=== PATIENT | female | born 1935 | race African-American/Black ===

== ENCOUNTER 2024-06-30 10:12 | Inpatient (IN) | payer OTHER ==
--- NOTE | 2024-06-30 11:19 | RAD REPORT ---
Procedure: Chest Single View HISTORY: Confusion COMPARISON: 2013 FINDINGS: The lungs appear clear of acute infiltrate. No significant pleural effusion noted. The heart is mildly to moderately enlarged. .Marked degenerative changes left shoulder. 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 IMPRESSION: No acute abnormality is displayed.
[2024-06-30 11:30] LABS: Absolute Lymphocytes (CBC) 0.8 K/uL (0.7-4.9); Absolute Monocytes 0.1 K/uL (0.1-1.3); Absolute Neutrophil 4.6 K/uL (1.8-8.0); Basophils % 0.2 % (0-1.3); Eosinophils % 0.6 % (0-4.4); Hematocrit 34.6 % (36.0-45.0); Lymphocytes % 14.7 % (15.3-44.8); MCH 28.9 pg (27.0-35.0); MCHC 31.9 g/dL (32.0-36.0); MCV 90.7 fL (80-100); MPV 9.4 fL (7.6-11.3); Monocytes % 2.2 % (3.3-12.3); Neutrophils % 82.3 % (41.7-73.7); Platelets 114 thou/uL (152-406); RBC Red Blood Cell Count 3.81 M/uL (3.86-4.86); Red Cell Distribution Width 14.8 % (12.1-15.2)
[2024-06-30 11:33] LABS: PT Prothrombin Time 13.9 SECONDS (9.4-12.5); PTT, Activated Partial Thromb 24.6 SECONDS (24.3-36.9); Protime INR 1.25
[2024-06-30 11:45] LABS: Anion Gap 15.2 mEq/L (5.0-15.0); Potassium 3.2 mEq/L (3.5-5.1)
[2024-06-30 11:53] LABS: Troponin High Sensitivity 347.5 pg/mL (<58.9)
--- NOTE | 2024-06-30 11:57 | RAD REPORT ---
EXAM: CT brain without contrast HISTORY: Confusion. COMPARISON: 2013 TECHNIQUE: Multiple contiguous axial images were obtained and a CT of the brain without contrast. Sagittal and coronal reformats were performed. Automated exposure control, adjustment of the mA and/or kV according to patient size, and/or itera tive reconstruction. Unless otherwise specified, incidental findings do not require dedicated imaging follow-u FINDINGS: An intracranial bleed is not seen Ventricles are normal caliber No extra-axial fluid collection noted Mild to moderate low-density paraventricular, deep and subcortical white matter probably ischemic lee nges secondary to small vessel disease. 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 IMPRESSION: No acute intracranial abnormality noted. If the patient's symptoms persist MRI of the brain would be recommended. from the emergency room was notified at 1150AM June 30, 2024
[2024-06-30 12:33] LABS: Specific Gravity 1.016 (1.005-1.030); Sqamous Epithelial <5 /HPF (None Seen); Urine Bacteria >50 /HPF (<20); Urine Bilirubin NEGATIVE (Negative); Urine Blood 2+ (Negative); Urine Clarity Extremely Turbid (Clear); Urine Color Light-Orange (Yellow); Urine Culture Reflex Order REFLEXED; Urine Glucose NEGATIVE (Negative); Urine Ketones TRACE (Negative); Urine Microscopic Reflex YN ORDER UMIC; Urine Mucus 2+ /HPF (None Seen); Urine Nitrite NEGATIVE (Negative); Urine Protein 1+ (Negative); Urine RBC <5 /HPF (None Seen); Urine Urobilinogen 1+ (Normal); Urine WBC 20-50 /HPF (<5); Urine pH 5.5 (5.0-7.0)
--- NOTE | 2024-06-30 13:14 | EDPHYS ---
Physician Documentation [facility] Name: Renetta Slaughter Age: 89 yrs Sex: Female : 1935 Arrival Date: 06/30/2024 Time: 10:12 Bed 2 Private MD: ED Physician Reji Duran HPI: 06/30 20:36 This 89 yrs old Black Female presents to ER via EMS with complaints of Altered Mental bo1 Status. 20:36 The patient presents with confusion, Change noted by family member progressively since bo1 Wed of this past week. Onset: The symptoms/episode began/occurred gradually, 3 day(s) ago, and became worse. Associated signs and symptoms: Pertinent positives: confusion. Current symptoms: In the emergency department the patient's symptoms are unchanged from the initial presentation. Patient's baseline: Normal mentation. Pt is outside the window for thrombolytics. Other causes of AMS need to be considered. Historical: - Allergies: 10:18 No Known Allergies; bp - PMHx: 12:11 Hypertensive disorder; jl7 - PSHx: 12:11 Cholecystectomy; Total abdominal hysterectomy; jl7 - Immunization history:: Adult Immunizations unknown. - Infectious Disease History:: Denies. - Social history:: Smoking status: unknown. ROS: 20:41 Constitutional: Negative for fever, chills, and weight loss per family bo1 20:41 All other systems are negative, 20:41 Unable to obtain ROS due to altered mental status, patient's speech is incomprehensible, patient's inability to understand questions, Exam: 20:43 Constitutional: This is a well developed, well nourished patient who is awake and in bo1 no acute distress. 20:43 Constitutional: The patient appears alert, awake, Elderly non toxic but not verbal 20:43 Head/face: Exam is negative for acute changes, 20:43 Eyes: Preference to the left side. 20:43 Neck: External neck: is normal, 20:43 Cardiovascular: Rate: normal, Rhythm: regular, Pulses: no pulse deficits are appreciated, 20:43 No acute EKG changes 20:43 Respiratory: the patient does not display signs of respiratory distress, Respirations: normal, Breath sounds: are clear throughout, Shallow breathing but not labored, 20:43 Musculoskeletal/extremity: Extremities: all appear grossly normal, with no appreciated pain with palpation, 20:43 Skin: Turgor: is good, Warm and dry, 20:43 Neuro: seizure activity, is not displayed by the patient, AMS unable to test NIH due to AMS, Vital Signs: 10:15 BP 113 / 76; Pulse 75; Resp 18; Temp 97.5; Pulse Ox 94% ; bp 10:51 Pulse Ox 97% on 2 lpm NC; jl7 12:40 BP 120 / 76; Pulse 83; Resp 17; Pulse Ox 97% ; jl7 14:45 BP 132 / 78; Pulse 85; Resp 15; Pulse Ox 97% on 2 lpm NC; jl7 MDM: 10:39 Medical Screening Exam initiated bo1 20:41 Differential Diagnosis: Infection - source suspected is urinary. Possible CVA with bo1 delayed presentation. Data reviewed: vital signs, old medical records, lab test result(s), EKG, radiologic studies, CT scan, plain films. 20:42 ED course: Discussed the need to inhouse admission to family due to elevated cardiac bo1 enzymes and AMS condition. 20:48 Consideration of Admission/Observation Patient was admitted/placed on observation. bo1 Management of patient was discussed with the following: Hospitalist: Dr Parisa LARSON/Too. 06/30 11:02 Order name: Basic Metabolic Panel; Complete Time: 12:16 bo1 06/30 11:02 Order name: CBC with Diff; Complete Time: 12:16 bo1 06/30 11:02 Order name: High Sensitivity Troponin; Complete Time: 12:16 bo1 06/30 11:02 Order name: Protime (+inr); Complete Time: 12:16 bo1 06/30 11:02 Order name: Ptt, Activated; Complete Time: 12:16 bo1 06/30 11:02 Order name: Urinalysis w/ reflexes; Complete Time: 13:07 bo1 06/30 12:40 Order name: Urine Culture EDMS 06/30 13:16 Order name: Troponin High Sensitivity EDMS 06/30 13:18 Order name: Liver (Hepatic) Function EDMS 06/30 13:27 Order name: Troponin High Sensitivity bo1 06/30 14:31 Order name: CBC with Automated Diff EDMS 06/30 14:31 Order name: CBC with Automated Diff EDMS 06/30 14:31 Order name: Comprehensive Metabolic Panel EDMS 06/30 14:31 Order name: Comprehensive Metabolic Panel EDWY 06/30 14:31 Order name: Troponin High Sensitivity ED[facility] 06/30 14:31 Order name: Troponin High Sensitivity [facility] 06/30 14:31 Order name: Troponin High Sensitivity EDW[facility] 06/30 11:02 Order name: CT Stroke Brain w/o Contrast; Complete Time: 12:16 bo1 06/30 11:02 Order name: Stroke CXR 1 View; Complete Time: 12:16 bo1 06/30 15:04 Order name: Brain Wo Cont EDW[facility] 06/30 14:31 Order name: CONS Physician Consult ED[facility] 06/30 11:02 Order name: Accucheck; Complete Time: 11:05 bo1 06/30 11:02 Order name: Cardiac monitoring; Complete Time: 11:05 bo1 06/30 11:02 Order name: EKG - Nurse/Tech; Complete Time: 11:05 bo1 06/30 11:02 Order name: IV Saline Lock; Complete Time: 11:05 bo1 06/30 11:02 Order name: Labs collected and sent; Complete Time: 11:25 bo1 06/30 11:02 Order name: NPO; Complete Time: 11:05 bo1 06/30 11:02 Order name: O2 Per Protocol; Complete Time: 11:05 bo1 06/30 11:02 Order name: O2 Sat Monitoring; Complete Time: 11:05 bo1 06/30 11:02 Order name: Stroke Swallow Screen; Complete Time: 11:05 bo1 06/30 14:52 Order name: Alfonso; Complete Time: 15:08 jl7 Administered Medications: 15:11 Drug: Rocephin IV 1 grams IV at calculated rate once; Given slow IV push per pharmacy jl7 instructions Route: IV; Rate: calculated rate; Site: right antecubital; 15:29 Follow up: Response: No adverse reaction; IV Status: Completed infusion jl7 Disposition Summary: 06/30/24 13:13 Hospitalization Ordered Notes: Hospitalization Status: Observation bo1 Provider: Blanca Mccauley Location: Telemetry/MedSurg (observation) bo1 Condition: Fair bo1 Problem: new bo1 Symptoms: are unchanged bo1 Bed/Room Type: Standard bo1 Room Assignment: 403(06/30/24 14:38) eb Diagnosis - UTI/ Urinary tract infection, site not specified bo1 - Altered mental status, unspecified bo1 Forms: - Medication Reconciliation Form bo1 - SBAR form bo1 - Leadership Thank You Letter bo1 Signatures: Dispatcher [employer] EDPatti Maya, RN RN jl7 David Mckeon RN RN Jacqueline Meredith Benjamin, MD MD bo1 Corrections: (The following items were deleted from the chart) 11: 11:03 BASIC METABOLIC PANEL+C.LAB.BRZ ordered. EDMS EDMS 11: 11:03 CBC+H.LAB.BRZ ordered. EDMS EDMS 11: 11:03 Troponin High Sensitivity+C.LAB.BRZ ordered. EDMS EDMS 11: 11:03 PROTIME (+INR)+COAG.LAB.BRZ ordered. EDMS EDMS 11: 11:03 PTT, ACTIVATED+COAG.LAB.BRZ ordered. EDMS EDMS 11:03 11:03 CT-STROKE BRAIN W/O CONTRAST+CT.RAD.BRZ ordered. EDMS EDMS 11: 11:03 Chest Single View+RAD.RAD.BRZ ordered. EDMS EDMS 11:03 11:03 Urinalysis+U.LAB.BRZ ordered. EDMS EDMS 14:38 13:13 bo1 eb
--- NOTE | 2024-06-30 13:14 | ER ---
Nurse's Notes [facility] Name: Renetta Slaughter Age: 89 yrs Sex: Female : 1935 Arrival Date: 06/30/2024 Time: 10:12 Bed 2 Private MD: Diagnosis: UTI/ Urinary tract infection, site not specified;Altered mental status, unspecified Presentation: 12 10:15 Chief complaint: EMS states: FAMILY CALLED 911 FOR AMS, LAST KNOWN NORMAL >24 HR. NO bp FOCAL NEURO DEFICITS NOTED. Coronavirus screen: At this time, the client does not indicate any symptoms associated with coronavirus-19. Ebola Screen: No symptoms or risks identified at this time. Initial Sepsis Screen: Does the patient meet any 2 criteria? Altered Mental Status. No. Patient's initial sepsis screen is negative. Does the patient have a suspected source of infection? No. Patient's initial sepsis screen is negative. Risk Assessment: Do you want to hurt yourself or someone else? Patient reports no desire to harm self or others. Onset of symptoms is unknown. Care prior to arrival: IV initiated. 20 GA, in the left forearm. 10:15 Method Of Arrival: EMS: [facility] bp 10:15 Acuity: NIC 3 bp Triage Assessment: 10:18 General: Appears unkempt, Behavior is agitated, uncooperative. Pain: Unable to use pain bp scale. Does not appear to understand pain scale. EENT: No deficits noted. Neuro: Level of Consciousness is awake, confused, Oriented to none. Cardiovascular: Rhythm is sinus rhythm. Respiratory: No deficits noted. GI: No signs and/or symptoms were reported involving the gastrointestinal system. : No signs and/or symptoms were reported regarding the genitourinary system. Derm: No deficits noted. Musculoskeletal: No deficits noted. Historical: - Allergies: 10:18 No Known Allergies; bp - PMHx: 12:11 Hypertensive disorder; jl7 - PSHx: 12:11 Cholecystectomy; Total abdominal hysterectomy; jl7 - Immunization history:: Adult Immunizations unknown. - Infectious Disease History:: Denies. - Social history:: Smoking status: unknown. Screenin:19 [facility] ED Fall Risk Assessment (Adult) History of falling in the last 3 months, bp including since admission No falls in past 3 months (0 pts) Confusion or Disorientation Yes (5 pts) Intoxicated or Sedated No (0 pts) Impaired Gait Yes (1 pt) Mobility Assist Device Used No (0 pt) Altered Elimination No (0 pt) Score/Fall Risk Level 3 or more points = High Risk Oriented to surroundings, Maintained a safe environment. Abuse screen: Denies threats or abuse. Denies injuries from another. Nutritional screening: No deficits noted. Tuberculosis screening: No symptoms or risk factors identified. Assessment: 10:19 General: SEE TRIAGE NOTE. Derm: Decubitus located on sacrum approximately 2.6 cm to 7.5 bp cm is stage II. Vital Signs: 10:15 BP 113 / 76; Pulse 75; Resp 18; Temp 97.5; Pulse Ox 94% ; bp 10:51 Pulse Ox 97% on 2 lpm NC; jl7 12:40 BP 120 / 76; Pulse 83; Resp 17; Pulse Ox 97% ; jl7 14:45 BP 132 / 78; Pulse 85; Resp 15; Pulse Ox 97% on 2 lpm NC; jl7 ED Course: 10:15 Patient arrived in ED. bp 10:18 Triage completed. bp 10:18 Arm band placed on. bp 10:19 Patient has correct armband on for positive identification. bp 10:19 Maintain EMS IV. Dressing intact. Good blood return noted. Site clean \T\ dry. Gauge \T\ bp site: 20 LFA. Flushed with 10 mL NS. 10:20 David Mckeon, RN is Primary Nurse. bp 10:20 laboratory monitor on. Pulse ox on. NIBP on. jl7 10:20 Warm blanket given. jl7 10:39 Reji Duran MD is Attending Physician. bo1 10:51 EKG done, by ED staff, reviewed by Reji Duran MD. jl7 11:12 Stroke CXR 1 View In Process Unspecified. EDMS 11:45 CT Stroke Brain w/o Contrast In Process Unspecified. EDMS 12:10 Urine collected: straight cath specimen, cloudy, tea colored, sediment noted, Amount jl7 Returned: 200mL. Straight cath inserted, using sterile technique, 14 Fr. Specimen obtained. Returned cloudy urine. Patient tolerated well. 13:11 Ritchie Sparks is Hospitalizing Provider. bo1 13:13 Hospitalizing Provider role handed off by Ritchie Sparks bo1 13:13 Blanca Mccauley MD is Hospitalizing Provider. bo1 13:35 Repeat lab(s) drawn. by me, sent to lab. jl7 15:08 Alfonso cath inserted, using sterile technique, 16 Fr., by me, balloon inflated, to ll1 gravity drainage, Patient tolerated well. 15:13 Provided Education on: admit education to family. jl7 15:13 No provider procedures requiring assistance completed. Patient admitted, IV remains in jl7 place. intact, No redness/swelling at site. Administered Medications: 15:11 Drug: Rocephin IV 1 grams IV at calculated rate once; Given slow IV push per pharmacy jl7 instructions Route: IV; Rate: calculated rate; Site: right antecubital; 15:29 Follow up: Response: No adverse reaction; IV Status: Completed infusion jl7 Medication: 10:19 VIS not applicable for this client. bp Outcome: 13:13 Decision to Hospitalize by Provider. bo1 15:13 Admitted to Tele accompanied by tech, family with patient, via stretcher, room 403, jl7 with chart, 15:13 Condition: stable 15:13 Discharge instructions given to family, Instructed on the need for admit, Demonstrated understanding of instructions, 15:28 Patient left the ED. jl7 Signatures: Dispatcher [employer] EDMS Patti Diaz RN RN jl7 David Mckeon RN RN bp Lewis, Lynsay, BENSON RN ll1 Reji Duran MD MD bo1
[2024-06-30 14:06] LABS: Troponin High Sensitivity 350.2 pg/mL (<58.9)
--- NOTE | 2024-06-30 14:22 | P.HP ---
Certification for Inpatient Patient admitted to: Inpatient With expected LOS: >2 Midnights Patient will require the following post-hospital care: Home Health Services Practitioner: I am a practitioner with admitting privileges, knowledge of patient current condition, hospital course, and medical plan of care. Services: Services provided to patient in accordance with Admission requirements found in Title 42 Section 412.3 of the Code of Federal Regulations Patient History Date of Service: 06/30/24 Reason for admission: Altered mental status History of Present Illness: Patient is an 89-year-old female who came to the hospital with altered mentation. Patient apparently has been doing well where she is fairly active at home. She eats and drinks fairly well. She also gets around by herself but does sometimes use a walker. Her family states that she normally has really appropriate conversations but she does get confused at times. This morning she was not acting like herself and she was very altered. The family was concerned about her mentation. They decided to bring her into the emergency room for further evaluation. In the ER, her she was evaluated and she had labs which showed acute renal sufficiency with a urinary tract infection and elevated troponins. There was no significant change in her repeat troponins, and the EKG were unremarkable. Patient is not having any obvious chest pain although she is confused and not really interacting that her well. CT scan of the brain was unremarkable. Patient will be admitted to the hospital for a urinary tract infection with acute renal insufficiency. Will continue with IV antibiotics and aggressive IV hydration. Patient will also get cardiology consultation for elevated troponin and will get an echocardiogram. Reassess patient later this evening. - Past Medical/Surgical History -: Hypertension -: GERD -: Osteoarthritis -: Cholecystectomy -: Hysterectomy - Family History Father Family History: Reviewed- Non-Contributory - Social History Smoking Status: Former smoker Alcohol use: No CD- Drugs: No Review of Systems is unable to be obtained Physical Examination - Vital Signs Temperature: 98 F Blood Pressure: 140/90 Pulse: 110 Respirations: 18 Pulse Ox (%): 95 - Physical Exam General: Other (lethargic) HEENT: Atraumatic, PERRLA, Mucous membr. moist/pink, EOMI, Sclerae nonicteric Neck: Supple, 2+ carotid pulse no bruit, No LAD, Without JVD or thyroid abnormality Respiratory: Clear to auscultation bilaterally, Normal air movement Cardiovascular: Regular rate/rhythm, Normal S1 S2, Systolic murmur Gastrointestinal: Normal bowel sounds, Soft and benign, Non-distended, No tenderness Musculoskeletal: No clubbing, No swelling, No tenderness Integumentary: No rashes Neurological: Sensation intact, Cranial nerves 3-12 intact, Abnormal gait, Abnormal speech, Abnormal strength Lymphatics: No axilla or inguinal lymphadenopathy - Studies Laboratory Data (last 24 hrs) 06/30/24 06/30/24 06/30/24 11:18 11:18 11:18 WBC 5.60 Hgb 11.0 L Hct 34.6 L Plt Count 114 L PT 13.9 H INR 1.25 APTT 24.6 Sodium 137 Potassium 3.2 L BUN 60 H Creatinine 3.71 H Glucose 118 H Assessment & Plan - Problems (Diagnosis) (1) Altered mental status Current Visit: Yes Status: Acute (2) UTI (urinary tract infection) Current Visit: Yes Status: Acute (3) Toxic encephalopathy Current Visit: Yes Status: Acute (4) DENNIS (acute kidney injury) Current Visit: Yes Status: Acute (5) Metabolic encephalopathy Current Visit: Yes Status: Acute (6) History of hypertension Current Visit: Yes Status: Acute (7) History of osteoarthritis Current Visit: Yes Status: Acute (8) History of gastroesophageal reflux (GERD) Current Visit: Yes Status: Acute - Plan Plan: 1. UTI with toxic encephalopathy; continue with IV fluids and IV antibiotic therapy. Alfonso catheter in place at this time 2. DENNIS with metabolic encephalopathy; continue with gentle hydration. Baseline GFR was greater than 60. Continue monitoring renal function closely. Will hold off on nephrology consult unless patient renal function does not improve. 3. Elevated troponin; most likely related type II myocardial infarction. No EKG changes and repeat troponin was not significantly elevated. Will continue with antiplatelet therapy and statin therapy; strict BP 4. Possible CVA; CT of the head was negative. Will get an MRI of the brain in AM. 5. History of hypertension; continue with antihypertensives 6. History of osteoarthritis; physical therapy evaluation. According to the family patient gets out of bed and ambulates on her own. Sometimes she does use a walker. 7. GERD; continue with PPI 8. DVT prophylaxis Discharge Plan: Home Plan to discharge in: Greater than 2 days - Advance Directives Does patient have a Living Will: No Does patient have a Durable POA for Healthcare: No - Code Status/Comfort Care Code Status Assessed: Yes Code Status: Full Code Critical Care: No Time Spent Managing PTS Care (In Minutes): 45
[2024-06-30] MEDS ORDERED: ACETAMINOPHEN 500 MG TAB PO PRN (14:25)
[2024-06-30] MEDS: ASPIRIN EC 81 MG TAB PO ONE (14:25)
[2024-06-30] MEDS: CEFTRIAXONE 1,000 MG in NA CHLORIDE 0.9% 50 ML IVPB STA (14:25)
[2024-06-30] MEDS ORDERED: ONDANSETRON 4 MG/2 ML VIAL IV PRN (14:25)
[2024-06-30] MEDS ORDERED: CEFTRIAXONE 1000 MG/VIAL ONE (14:55)
[2024-06-30] MEDS ORDERED: METOPROLOL TARTRATE 5 MG/5 ML INJ IV PRN (15:02)
[2024-06-30] MEDS: NA CHLORIDE 0.9% 1,000 ML IV SCH (16:52)
[2024-06-30 17:03] VITALS: BMI 29.8
[2024-06-30] MEDS: METOPROLOL TAR 25 MG TAB PO SCH (18:00)
[2024-06-30] MEDS: LOSARTAN POTASSIUM 50 MG TABLET PO SCH (21:34)
[2024-06-30] MEDS: ATORVASTATIN 20 MG TAB PO SCH (21:34)
[2024-06-30 22:04] LABS: Albumin 3.2 g/dL (3.4-5.0); Albumin/Globulin Ratio 0.8 (1.1-1.8); Bilirubin Direct 0.4 mg/dL (0-0.2); Bilirubin Indirect, Calculated 0.5 mg/dL (0.2-0.8); Bilirubin Total 0.9 mg/dL (0.2-1.0); Globulin 4.1 g/dL (2.3-3.5); Protein, Total 7.3 g/dL (6.4-8.2)
--- NOTE | 2024-07-01 01:37 | P.PN ---
Date of Service: 07/01/24 Reported transient 3 seconds run of A-fib with RVR but returned back to sinus, unclear if actual A-fib, but will obtain magnesium and TSH for now
[2024-07-01 04:01] LABS: Thyroid Stimulating Hormone 0.621 uIU/mL (0.358-3.740)
[2024-07-01 04:02] LABS: Magnesium 1.6 mg/dL (1.6-2.4)
[2024-07-01 06:20] LABS: Absolute Monocytes 0.2 K/uL (0.1-1.3); Absolute Neutrophil 2.2 K/uL (1.8-8.0); Basophils % 0.1 % (0-1.3); Eosinophils % 0.1 % (0-4.4); Hematocrit 31.6 % (36.0-45.0); Hemoglobin 10.3 g/dL (12.0-15.0); Lymphocytes % 28.9 % (15.3-44.8); MCHC 32.5 g/dL (32.0-36.0); MCV 89.3 fL (80-100); MPV 9.8 fL (7.6-11.3); Monocytes % 4.9 % (3.3-12.3); Platelets 103 thou/uL (152-406); RBC Red Blood Cell Count 3.54 M/uL (3.86-4.86)
[2024-07-01] MEDS: NA CHLORIDE 0.9% 500 ML IV ONE (06:33)
[2024-07-01 06:37] LABS: Albumin 2.6 g/dL (3.4-5.0); Albumin/Globulin Ratio 0.7 (1.1-1.8); Bilirubin Total 0.8 mg/dL (0.2-1.0); Globulin 3.9 g/dL (2.3-3.5); Protein, Total 6.5 g/dL (6.4-8.2)
[2024-07-01 07:09] LABS: Troponin High Sensitivity 287.4 pg/mL (<58.9)
[2024-07-01] MEDS ORDERED: LOSARTAN POTASSIUM 50 MG TABLET PO SCH (09:00)
[2024-07-01] MEDS: ASPIRIN EC 81 MG TAB PO SCH (09:00)
[2024-07-01 09:25] LABS: Blood Morphology Comment NOT SEEN (NOT SEEN); Differential Total Cells Count 100; Lymphocytes 29 % (15-42); Monocytes 5 % (0-10); Platelet Estimate DECR; Segmented Neutrophils 66 % (40-80)
[2024-07-01 09:26] LABS: Dohle Bodies PRESENT
[2024-07-01] MEDS: Magnesium Sulfate 2gm IVPB 2 G/50 ML BAG IV ONE ×2 (10:23→11:00)
[2024-07-01] MEDS: CEFTRIAXONE 1,000 MG in NA CHLORIDE 0.9% 50 ML IVPB SCH (10:28)
--- NOTE | 2024-07-01 11:36 | P.CNS ---
Date of Consult: 07/01/24 Chief Complaint: Altered mental status History of Present Illness: Patient presented with AMS, trying to talk to her did not get any input, cardiology was consulted for NSTEMI. Allergies No Known Allergies Allergy (Unverified 06/30/24 15:02) Home medications list reviewed: Yes - Past Medical/Surgical History -: Hypertension -: GERD -: Osteoarthritis -: Cholecystectomy -: Hysterectomy - Family History Father Family History: Reviewed- Non-Contributory - Social History Smoking Status: Unknown if ever smoked Alcohol use: No CD- Drugs: No Review of Systems is unable to be obtained Physical Examination Temp Pulse Resp BP Pulse Ox 98.2 F 82 16 157/71 H 99 07/01/24 08:00 07/01/24 08:00 07/01/24 08:00 07/01/24 08:00 07/01/24 08:00 General: Cachectic, Delirious, Unresponsive Respiratory: Clear to auscultation bilaterally Cardiovascular: No edema, Normal S1 S2 Gastrointestinal: Normal bowel sounds Laboratory Data (last 24 hrs) 06/30/24 06/30/24 06/30/24 13:32 11:18 11:18 PT 13.9 H INR 1.25 APTT 24.6 Sodium 137 Potassium 3.2 L BUN 60 H Creatinine 3.71 H Glucose 118 H Total Bilirubin 0.9 AST 71 H ALT 29 Alkaline Phosphatase 49 - Problems (1) Elevated troponin Current Visit: Yes Status: Acute Plan: Troponin are mildly elevated with no significant EKG changes, patient is very weak, cachectic and unable to communicate, patient is not a candidate for any advanced cardiology intervention. continue medical treatment. continue ASA 81 mg daily get Echo (2) HTN (hypertension) Current Visit: Yes Status: Acute Plan: continue current medications
--- NOTE | 2024-07-01 12:36 | P.PN ---
Subjective Date of Service: 07/01/24 Chief Complaint: Altered mental status Subjective: No new changes No overnight events noted except for patient having poor oral intake, urine output 700 mL/h, no urinary tension by bedside ultrasound. Patient is nonverbal, on communicable, does not follow any command Review of Systems is unable to be obtained Physical Examination - Vital Signs Temperature: 98.6 F Blood Pressure: 133/71 Pulse: 79 Respirations: 16 Pulse Ox (%): 100 - Physical Exam Other Physical/Emotional Findings: - Physical Exam. General: Chronic ill- looking, cachectic, no apparent distress. HEENT: Normocephalic, atraumatic, nonicteric sclera, nonanemic conjunctive. Neck: Supple, without JVD or goiter or thyroid mass. Respiratory: Normal breathing effort, clear to auscultation bilaterally, no crackles no wheezing or rhonchi. Cardiovascular: Regular rate and rhythm, S1, S2 normal, no murmur no gallop. Gastrointestinal: Normal bowel sounds, nondistended, nontender, No ascites, , No masses, no hepatosplenomegaly. Extremities l: No clubbing, No peripheral edema, full range of motion, no deformity, no muscle atrophy. Integumentary: No rashes, petechia, suspected lesions. Lymphatics: No axilla or cervical lymphadenopathy. Neurology; drowsy, arousable by painful stimuli, no focal neurologic deficit, - Studies Laboratory Data (last 24 hrs) 06/30/24 13:32 Total Bilirubin 0.9 AST 71 H ALT 29 Alkaline Phosphatase 49 Assessment And Plan - Plan Patient is an 89-year-old female who came to the hospital with altered mentat ion. Patient apparently has been doing well where she is fairly active at home. She eats and drinks fairly well. She also gets around by herself but does sometimes use a walker. Her family states that she normally has really appropriate conversations but she does get confused at times. This morning she was not acting like herself and she was very altered. The family was concerned about her mentation. They decided to bring her into the emergency room for further evaluation. In the ER, her she was evaluated and she had labs which showed acute renal sufficiency with a urinary tract infection and elevated troponins. There was no significant change in her repeat troponins, and the EKG were unremarkable. Patient is not having any obvious chest pain although she is confused and not really interacting that her well. CT scan of the brain was unremarkable. #1 metabolic encephalopathy related to #2 and #[address] advanced dementia CT of the brain on admission shows no acute abnormality #2 possible acute cystitis without sepsis Urine culture growing gram-negative sanjuana, identification and sensitivity still pending, will continue ceftriaxone, no leukocytosis afebrile #3 nonoliguric DENNIS/CKD with overt proteinuria BUN/creatinine 73/3.82, no baseline creatinine to compare, urine output 700 mL over 12 hours, will continue IV hydration with normal saline at 100 mL/h, bicarb 27, potassium 3.0 replaced #4 paroxysmal atrial fibrillation with rapid ventricular response Heart rate down to 80, I will increased metoprolol 25 mg to 50 mg twice daily DVT prophylaxis enoxaparin subcu
[2024-07-01] MEDS: METOPROLOL TAR 50 MG TAB PO SCH (18:00)
--- NOTE | 2024-07-01 20:12 | RAD REPORT ---
EXAMINATION: US RETROPERITONEUM CLINICAL INDICATION: [facility] MAIN DENNIS TECHNIQUE: Real-time ultrasonography of the abdomen was performed. COMPARISON: CT abdomen and pelvis 05/17/2019 FINDINGS: RIGHT KIDNEY: Right renal length measurement: 7.8 cm. Normal in echogenicity and size. No calculus, s olid mass or hydronephrosis. LEFT KIDNEY: Extensive bowel shadowing limits evaluation. Left renal length measurement: 5.0 cm. Jermaine ed cortical thinning and increased echogenicity. No calculus, solid mass or hydronephrosis. URINARY BLADDER: Decompressed with Alfonso catheter in place. ADDITIONAL FINDINGS: Extensive fluid with debris in the left upper quadrant which may relate to stoma ch content, less likely a fluid collection. IMPRESSION: Atrophic changes of the left kidney, evaluation is limited due to extensive bowel shadowing in the le ft flank. Large volume of fluid present in the left upper quadrant, may relate to stomach content, less likely a fluid collection. If there is concern for sepsis or an infectious/inflammatory process in the abdomen, additional evaluation by CT may be helpful.
--- NOTE | 2024-07-01 20:19 | RAD REPORT ---
EXAMINATION: MRI BRAIN WITHOUT CONTRAST CLINICAL INDICATION: Female, 89 years old.[facility] MAIN N CVA; AMS TECHNIQUE: Multiplanar multisequence MR images of the brain were obtained without intravenous contras t. Unless otherwise specified, incidental findings do not require dedicated imaging follow-up. COMPARISON: 06/30/[address] FINDINGS: INTRACRANIAL: Motion artifact limits evaluation despite attempts at repeat imaging. Disproportionate prominence of the ventricles relative to the sulci. Midline structures are unremarkable. Diffusion restriction involving the right occipital lobe, with corresponding FLAIR signal abnormality and other foci of diffusion restriction along the basal and posterior right temporal lobe. There is moderate brain atrophy with advanced T2/FLAIR hyperintensities in the periventricular and deep whi te matter regions, likely representing chronic microvascular ischemic changes. There is no mass effect or midline shift. No abnormal extraaxial fluid collection. No susceptibility signal abnormalities. VASCULATURE: Normal signal voids in the larger intracranial arteries and dural venous sinuses. SINUSES: The paranasal sinuses and mastoid air cells are predominantly clear. BONE: The marrow signal pattern is within normal limits. IMPRESSION: Within limits of motion artifact, there is a region of diffusion restriction involving the right occi pital lobe, and adjacent basal and posterior right temporal lobe, concerning for acute to subacute infarct. Disproportionate prominence of the ventricular system relative to the sulci, findings which may relat e to central predominant volume loss versus sequelae of normal pressure hydrocephalus. Please correlate clinically.
--- NOTE | 2024-07-01 22:45 | RAD REPORT ---
EXAM: XR Abdomen 1 View (KUB) HISTORY: [facility] MAIN [place] , COMPARISON: None FINDINGS: Single view of the abdomen shows a nonspecific, nonobstructive bowel gas pattern. Gaseous d istention of the stomach. No suspicious calcifications are seen. The bones are unremarkable. IMPRESSION: Nasogastric distention stomach. No other suspicious findings
--- NOTE | 2024-07-02 01:44 | CON ---
Date of Consultation: 07/01/2024 Chief Complaint: Acute kidney injury. History Of Present Illness: Patient was brought to the hospital because of altered mental status. She is 89-year-old woman with recent worsening of mental status, altered mental status, altered mentation. The patient apparently has been doing well and she was fairly active at home. Her appetite was diminished. She also developed some mental status changes and her family decided to bring her into the emergency room for further evaluation. In the emergency room, she was evaluated and had lab work done, which showed severe acute kidney insufficiency. Urinalysis was significant for urinary tract infection and she was found to have also elevated troponin. There are no EKG changes. She was consulted by vba developer. CT scan of the brain was unremarkable. The patient was admitted to the hospital for urinary tract infection. She was started on IV antibiotics and aggressive IV hydration for volume depletion and acute kidney injury. Echocardiogram is pending. Renal ultrasound was ordered and showed loculated fluid in left upper quadrant. Small kidneys with significant changes in renal cortex, thinning of the renal cortex consistent with chronic kidney disease. Past Medical History: Hypertension, GERD, osteoarthritis, cholecystectomy, hysterectomy. Family History: Noncontributory. Social History: Former smoker. Denies alcohol. Denies drugs. Review of Systems: Unobtainable. Patient is lethargic and cannot provide review of systems. Physical Examination: Vital Signs: Blood pressure 140/90, heart rate 110, respiratory rate 18, SpO2 95%, temperature 98 Farenheit. General: Patient is lethargic. HEENT: Atraumatic, normocephalic. Anicteric sclerae. Neck: Supple. No bruits. Lungs: Equal chest expansion. Cardiovascular: S1, S2. Gastrointestinal: Soft, benign. Extremities: No clubbing. No swelling. No tenderness. Neurologic: The patient is lethargic. Neuro exam cannot be obtained. She does not cooperate with neuro exam. Laboratory Data: Blood work: WBC 5.6, hemoglobin 11, hematocrit 34.6, platelet count 114. Sodium 137, potassium 3.2, BUN 60, creatinine 3.71, glucose 118. Impression And Plan: 1. Altered mental status, encephalopathy, likely patient has underlying dementia. Urinary tract infection, on antibiotics. Acute kidney injury due to ATN and prerenal azotemia. There is underlying severe chronic kidney disease. Renal ultrasound showed thinning of the cortex and small kidneys. Plan is to continue IV fluids for hydration and to treat acute kidney injury with IV hydration. Electrolytes are stable. Monitor potassium level. The patient may need some potassium supplementation. Plan is to check magnesium and phosphorus level. The patient is undergoing workup for altered mental status and possible CVA. CT of the head was negative. 2. Hypertension. Continue antihypertensive medication and avoid SANDER inhibitor, avoid ARB. 3. History of osteoarthritis. Avoid nonsteroidal anti-inflammatory medication. 4. Ultrasound shows loculated fluid. Plan is to check CT scan per stone protocol. CRISTOPHER/GOMEZ Voice ID: [id number] Report ID: [id number] VARGHESE
[2024-07-02 06:22] LABS: Anion Gap 13.1 mEq/L (5.0-15.0); Phosphorus 4.2 mg/dL (2.5-4.9); Potassium 3.1 mEq/L (3.5-5.1)
[2024-07-02 06:23] LABS: Troponin High Sensitivity 232.6 pg/mL (<58.9)
--- NOTE | 2024-07-02 07:58 | RAD REPORT ---
EXAMINATION: CT ABDOMEN AND PELVIS WITHOUT CONTRAST CLINICAL INDICATION: [place] TECHNIQUE: CT abdomen and pelvis was performed, without IV contrast, as per department protocol. Axia l, sagittal and coronal reconstructions were obtained. One or more of the following dose reduction techniques were used: Automated exposure control, adjustment of the mA and kV according to the patien t size, and iterative reconstruction. Unless otherwise specified, incidental findings do not require dedicated imaging follow-up. COMPARISON: 05/17/2019 FINDINGS: The lack of intravenous contrast limits the sensitivity of this exam for evaluation of solid visceral organs, vascular structures, and retroperitoneum. LOWER CHEST: Mild linear atelectasis is seen in the posterior left lung base. There is distention of the stomach seen. In the fundal region there is fluid present with possible air in the wall of the stomach present. LIVER:Normal in size and contour. No focal lesion. Cholecystectomy clips. SPLEEN: Normal size. No focal lesion. PANCREAS: No mass, ductal dilation, or dulce-pancreatic fluid. ADRENALS: Normal; no mass. KIDNEYS AND URETERS: Normal size and contour. No hydronephrosis. URINARY BLADDER: Normal contour. GASTROINTESTINAL TRACT: No evidence of bowel obstruction, significant free fluid, free air or abscess . Moderate stool is impacted in the rectum. APPENDIX: Appendix not visualized, but no inflammatory changes in region of appendix. LYMPH NODES: No lymphadenopathy. MUSCULOSKELETAL: Moderate multilevel spinal degenerative changes. ADDITIONAL FINDINGS: None. IMPRESSION: Distended stomach is noted with possible air in the stomach wall. This could indicate emphysematous g astritis. Upper endoscopy may be useful for further characterization. Moderate stool impacted in the rectum.
[2024-07-02] MEDS: KCL 20 MEQ/100 mL IVPB 20 MEQ/100 ML BAG IV SCH (09:05)
[2024-07-02] MEDS: ENOXAPARIN 30 MG/0.3 ML SQ SCH (09:12)
[2024-07-02] MEDS: LORazepam 2 MG/ML VIAL IV ONE (09:18)
--- NOTE | 2024-07-02 10:52 | RAD REPORT ---
EXAM: MRA head without contrast HISTORY: Stroke Ischemic stroke COMPARISON: MRI 07/01/2024 TECHNIQUE: MRA of the head was performed without contrast using 3-D [id number] imaging. 3-D rotational refor mats were performed. FINDINGS: Right intracranial internal carotid artery: Patent without narrowing or occlusion Right anterior cerebral artery: Patent without narrowing or occlusion Right middle cerebral artery: Patent without narrowing or occlusion Left intracranial internal carotid artery: Patent without narrowing or occlusion Left anterior cerebral artery: Patent without narrowing or occlusion Left middle cerebral artery: Patent without narrowing or occlusion No aneurysmal dilatation is seen in the anterior circulation. Right vertebral artery: Patent without narrowing or occlusion Left vertebral artery: Patent without narrowing or occlusion Basilar artery: Patent without narrowing or occlusion The posterior cerebral arteries and cerebellar arteries are patent without narrowing or occlusion. No aneurysmal dilatation is seen in the posterior circulation. IMPRESSION: No significant MRA abnormality of the head
--- NOTE | 2024-07-02 10:55 | RAD REPORT ---
EXAMINATION: CAROTID DUPLEX ULTRASOUND CLINICAL INDICATION: stroke TECHNIQUE: Real-time grayscale, color flow and spectral Doppler sonographic images were obtained of t he extracranial carotid system using a linear transducer. COMPARISON: No prior exam. FINDINGS: RIGHT: Common carotid artery: 49 cm/s Internal carotid artery: 95 cm/s External carotid artery: 70 cm/s Right ICA/CCA ratio: 1.9 Plaque: Mild hard plaque in the bulb. Vertebral artery Antegrade LEFT: Common carotid artery: 44 cm/s Internal carotid artery: 61 cm/s External carotid artery: 56 cm/s Left ICA/CCA ratio: 1.4 Plaque: Moderate hard plaque in the bulb. Vertebral artery Antegrade IMPRESSION: No hemodynamically significant stenosis (greater than 50%) within the extracranial internal carotid a rteries. Mild to moderate hard plaquing is seen in both carotid bulbs. The degrees of stenosis, if any, are quantified according to the consensus statement of the Society o f Radiologists in Ultrasound (SRUS). Please refer to Marcel E, Solomon C, Yarelis G et al. Carotid Artery Stenosis: Kwong-Scale and Doppler US Diagnosis--Society of Radiologists in Ultrasound Consensus Conference. Radiology. 2003;229(2):340-6.
--- NOTE | 2024-07-02 12:03 | EKG ---
Test Date: 2024-06-30 Test Time: 10:46:44 Inspector Final Assembly Electrical: ADAM MEASUREMENT RESULTS: Intervals: Rate: 83 ME: 208 QRSD: 84 QT: 470 QTc: 552 [place]: P: 50 ME: 208 QRS: -40 T: 138 INTERPRETIVE STATEMENTS: Sinus rhythm with premature atrial complexes Left axis deviation Possible Anterior infarct, age undetermined ST & T wave abnormality, consider lateral ischemia Abnormal ECG Compared to ECG 07/27/2013 14:48:26 Atrial premature complex(es) now present Left-axis deviation now present Myocardial infarct finding now present ST (T wave) deviation now present Possible ischemia now present Ventricular premature complex(es) no longer present Left ventricular hypertrophy no longer present Electronically Signed On 07-02-24 12:02:46 GUEST SERVICES ASSISTANT by Mike Delgado
--- NOTE | 2024-07-02 13:26 | P.PN ---
Subjective Date of Service: 07/02/24 Chief Complaint: Altered mental status Subjective: No new changes Patient condition has not changed many by conscious status, does not follow any kind, none bulbar she failed swallow evaluation test, brain MRI suggestive of a right occipital and temporal acute or subacute infarction, telemetry shows short runs of paroxysmal A-fib. Review of Systems is unable to be obtained Physical Examination - Vital Signs Temperature: 97.9 F Blood Pressure: 124/87 Pulse: 72 Respirations: 18 Pulse Ox (%): 100 - Physical Exam Other Physical/Emotional Findings: - Physical Exam. General: Chronic ill- looking, cachectic, no apparent distress. HEENT: Normocephalic, atraumatic, nonicteric sclera, nonanemic conjunctive. Neck: Supple, without JVD or goiter or thyroid mass. Respiratory: Normal breathing effort, clear to auscultation bilaterally, no crackles no wheezing or rhonchi. Cardiovascular: Regular rate and rhythm, S1, S2 normal, no murmur no gallop. Gastrointestinal: Normal bowel sounds, nondistended, nontender, No ascites, , No masses, no hepatosplenomegaly. Extremities l: No clubbing, No peripheral edema, full range of motion, no deformity, no muscle atrophy. Integumentary: No rashes, petechia, suspected lesions. Lymphatics: No axilla or cervical lymphadenopathy. Neurology; drowsy, arousable by painful stimuli, no focal neurologic deficit, - Studies Microbiology Data (last 24 hrs): 06/30/24 12:05 Clean Catch Urine [place] Count - Final >100,000 CFU/ML. 06/30/24 12:05 Clean Catch Urine - Final Escherichia Coli Assessment And Plan - Plan Patient is an 89-year-old female who came to the hospital with altered mentation. Patient apparently has been doing well where she is fairly active at home. She eats and drinks fairly well. She also gets around by herself but does sometimes use a walker. Her family states that she normally has really hipolito ropriate conversations but she does get confused at times. This morning she was not acting like herself and she was very altered. The family was concerned about her mentation. They decided to bring her into the emergency room for further evaluation. In the ER, her she was evaluated and she had labs which showed acute renal sufficiency with a urinary tract infection and elevated troponins. There was no significant change in her repeat troponins, and the EKG were unremarkable. Patient is not having any obvious chest pain although she is confused and not really interacting that her well. CT scan of the brain was unremarkable. 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 Case discussed with Dr. Arguello, will start apixaban 5 mg twice daily for suspected cardioembolic stroke, permissive hypertension, aspirin and statin #2 oropharyngeal dysphagia related to #1 I will insert nasogastric tube and tube feeding with oral medication, dietitian consulted, continue IV fluid until tube feeding start #3 possible acute cystitis without sepsis by pansensitive E. coli Urine culture positive for E. coli sensitive to all antibiotics, I will continue ceftriaxone, planning 5-day course, today is day 3, no leukocytosis afebrile #3 nonoliguric DENNIS on CKD with overt proteinuria BUN/creatinine stable at 81/3.5,, no baseline creatinine to compare, urine output 110 mL over 12 hours, ultrasound and CT of abdomen shows bilateral small kidneys suggestive of CKD, will continue IV hydration with normal saline at 100 mL/h, #4 paroxysmal atrial fibrillation with rapid ventricular response Heart rate down to 80 on metoprolol 25 mg to 50 mg twice daily, will continue current dose DVT prophylaxis enoxaparin subcu Patient has a poor prognosis given old age, extensive stroke and underlying CKD, which was discussed with her niece, GARRISON.
[2024-07-02] MEDS: NACHLORIDE 0.45% 1,000 ML with POTASSIUM CL 20 MEQ IV SCH (14:30)
--- NOTE | 2024-07-02 15:22 | ECHO ---
HEIGHT: 5 ft 6 in WEIGHT: 185 lb 0 oz DATE OF STUDY: 07/02/[address]: Blanca Mccauley MD 2-DIMENSIONAL: YES M.MODE: YES DOPPLER: YES COLOR FLOW: YES TDS: NO PORTABLE: YES DEFINITY: NO BUBBLE STUDY: NO DIAGNOSIS: DENNIS, NSTEMI CARDIAC HISTORY: CATHERIZATION: NO SURGERY: NO PROSTHETIC VALVE: NO PACEMAKER: NO MEASUREMENTS (cm) DIASTOLIC (NORMALS) SYSTOLIC (NORMALS) IVSd 1.3 (0.6-1.2) LA Diam 2.8 (1.9-4.0) LVEF 50-55% LVIDd 3.5 (3.5-5.7) LVIDs 2.5 (2.0-3.5) %FS 29% LVPWd 1.4 (0.6-1.2) Ao Diam 2.6 (2.0-3.7) 2 DIMENSIONAL ASSESSMENT: RIGHT ATRIUM: NORMAL LEFT ATRIUM: MILDLY DILATED RIGHT VENTRICLE: NORMAL LEFT VENTRICLE: MODERATE LEFT VENTRICULAR HYPERTROPHY TRICUSPID VALVE: TRACE TRICUSPID REGURGITATION MITRAL VALVE: TRACE MITRAL REGURGITATION PULMONIC VALVE: NORMAL AORTIC VALVE: TRACE AORTIC REGURGITATION PERICARDIAL EFFUSION: SMALL CIRCUMFERENTIAL AORTIC ROOT: NORMAL LEFT VENTRICULAR WALL MOTION: NORMAL. DOPPLER/COLOR FLOW: DIASTOLIC DYSFUNCTION. COMMENTS: 1. LOW NORMAL LEFT VENTRICULAR SYSTOLIC FUNCTION. LEFT VENTRICULAR EJECTION FRACTION 50-55%. NORMAL WALL MOTION. 2. DIASTOLIC DYSFUNCTION. 3. SMALL CIRCUMFERENTIAL PERICARDIAL EFFUSION, NO TAMPONADE. TECHNOLOGIST: JAIMEE ADAMS
[2024-07-02] MEDS ORDERED: JEVITY 1.2 CAL LIQUID 1,000 ML BOT RTH SCH (16:00)
--- NOTE | 2024-07-02 19:44 | CON ---
Reason For Consultation: Stroke. History Of Present Illness: Ms. Slaughter is an 89-year-old patient with hypertension, gastroesophageal reflux disease, who was at home with family and around in the morning when the patient was evaluated, was actually interacting with family, noted that she was inappropriate and appeared confused and not acting like herself. She did not have any obvious outward focal deficits such as face, arm, or leg changes. She was brought to [facility]. Evaluation identified acute renal insufficiency, u rinary tract infection, elevated troponins. She did have a negative head CT scan for any acute ische светлана or hemorrhagic findings and she was treated for renal insufficiency with hydration, urinary tract infection with IV antibiotics. The patient after subsequent admission was evaluated by brain MRI on 07/01. The study identified region of diffusion restriction involving the right occipital lobe and adjacent basal and posterior right temporal lobe concerning for acute to subacute infarcts. A brain MRA was done. The study showed no significant MRA abnormalities of the head. She was treated with aspirin 162 mg daily due to the concern of possible hemorrhagic areas. The lima ent was not put on clopidogrel or Plavix. She was put on Lipitor 20 mg at bedtime, but her heart rat e control and blood pressure control with beta-maxine and electrolytes addressed, again urinary trac t infection addressed, hydration level addressed. At the time of my evaluation, the patient was power spence in her room. She was somewhat difficult to communicate with. She did eventually move the arms and legs with repeated encouragement and did move her head around, did not show any obvious focal face, arm, or leg asymmetries. In terms of strength, just diffuse weakness, perhaps around 3 to 4. She wa s unable to hold both legs up off the bed. Difficult to assess for sensory responses, but she did fo andrew withdraw to some noxious responses and reflexes depressed, symmetric. Past Medical History: Hypertension, GE reflux, osteoarthritis. Past Surgical History: Cholecystectomy, hysterectomy. Social History: No alcohol, tobacco, or IV drug use. Family History: Noncontributory. Allergies: NO KNOWN DRUG ALLERGIES. Current Medications: Tylenol 500 mg every 6 hours as needed, aspirin 162 mg daily, Lipitor 20 mg at bedtime, Rocephin 1 g IV daily, Lovenox 30 mg subcutaneously daily, Lopressor 5 mg IV every 8 hours f or systolic blood pressure greater than 160 and scheduled Lopressor 50 mg twice daily, Zofran 4 mg ev stepan 8 hours as needed, and she did receive potassium replacement. Laboratory Studies: White blood cell count 3.4, hemoglobin 10.3, platelets 103. INR 1.25. Her trop onins do show a decreasing trend on the at 350.4. Troponin I on the 16 at 5:46, 287.4, and on the 17th at 5:23, 232.6. Creatine kinase was elevated at 415 and AST initially elevated to 71 and n ow to 51 after hydration. ALT is 24, alkaline phosphatase 44. Sodium 141, potassium 3.1, chloride 1 05, BUN 81, creatinine 3.58, glucose 93, phosphorus 4.2, magnesium 1.6. Urinalysis, 20 to 50 white b lood cells, esterase 20 to 50, bacteria greater than 50, hyaline casts 5 to 10, random urine protein 108.5 and 1+ protein, 2+ blood, trace ketones, and turbid clarity. Assessment: Ms. Slaughter is an 89-year-old patient with likely atoxic and metabolic encephalopathy. No evidence of a stroke affecting motor function. However, the location of her stroke in the posterior circulation involving the right temporal lobe and posterior region may impact some aspects of speech production and comprehension. In addition, the area of restriction in the right occipital lobe may affect her visual manjarrez, but very difficult to assess for full visual manjarrez. She is expected to aldana ve on the left side, but that could not be clearly reproduced. Location of her stroke is also not expected to present much focal face, arm, or leg changes such as weakness or numbness, altho ugh she may have some left arm and leg numbness. Plan: Continue with management of antiplatelet therapy, management of hypertension, Lovenox for DVT prophylaxis. Urinary tract infection addressed with Rocephin and if possible, the patient will be ev aluated by Therapy to determine what level she may be able to withstand. At this point, unlikely to be able to do well in acute rehab, perhaps [facility], where she has more time and has less noemy en of therapy on a daily basis, which inpatient requires 3 hours and [facility] about 1 hour leonides ly. Otherwise, no additional neurological intervention recommended at this point, and the MRA of the head shows no significant abnormalities to be addressed. LB/MODL Voice ID: [id number] Report ID: [id number]
--- NOTE | 2024-07-02 22:44 | PN ---
Date of Progress Note: 07/02/2024 Chief Complaint: Acute kidney injury. Subjective: The patient has nonoliguric urine output. She has severe acute kidney injury. She is a n 89-year-old woman with recent worsening of mental status, altered mental status, altered mentation. The patient apparently has been doing well and she was fairly active at home. Her appetite althoug h was diminished. She developed mental status changes and her family decided to bring her to emergen cy room. The patient was found to have severe acute kidney injury. Urinalysis was significant for u rinary tract infection. CT scan of the brain was unremarkable. Neurology consultation is requested for altered mental status, encephalopathy. Renal ultrasound was ordered and showed loculated fluid i n the left upper quadrant, small kidneys with significant changes in the renal cortex, thinning of th e renal cortex consistent with chronic kidney disease. Review of Systems: The patient cannot provide review of systems due to her condition. She remains lethargic. Does not answer questions. Physical Examination: General: The patient is lethargic. HEENT: Atraumatic, normocephalic. Anicteric sclerae. Neck: Supple. No bruits. Lungs: Equal chest expansion. No crackles. Heart: S1, S2. Abdomen: Soft, benign. Extremities: No edema. Impression And Plan: 1.Acute kidney injury. 2.Hyperazotemia. 3.Renal function has not improved since yesterday. Plan is to continue IV fluids. Family has not d ecided about dialysis. They want workup to be done for possible stroke and Neurology consultation is requested. 4.Hypertension. Continue antihypertensive medication. Avoid angiotensin-receptor maxine. Avoid A CE inhibitor. 5.History of osteoarthritis. Avoid nonsteroidal anti-inflammatory medication. 6.Ultrasound showed loculated fluid and CT scan per stone protocol was ordered, which showed possibl e gastritis and Gastroenterology consult is requested. EB/MODL Voice ID: [id number] Report ID: [id number]
[2024-07-03 07:20] LABS: Anion Gap 12.4 mEq/L (5.0-15.0); Potassium 3.4 mEq/L (3.5-5.1)
--- NOTE | 2024-07-03 10:57 | P.PN ---
Subjective Date of Service: 07/03/24 Chief Complaint: Altered mental status Subjective: No new changes There is no change in patient condition still remain in minimal conscious status, does not follow any command. order to insert Dobbhoff tube with tube feeding order was placed yesterday but not done per nurse at bedside patient family does not want NG tube because patient needs to be in restraints. Review of Systems is unable to be obtained Physical Examination - Vital Signs Temperature: 98.4 F Blood Pressure: 143/94 Pulse: 78 Respirations: 15 Pulse Ox (%): 95 - Physical Exam Other Physical/Emotional Findings: - Physical Exam. General: Chronic ill-lookin g, cachectic, no apparent distress. HEENT: Normocephalic, atraumatic, nonicteric sclera, nonanemic conjunctive. Neck: Supple, without JVD or goiter or thyroid mass. Respiratory: Normal breathing effort, clear to auscultation bilaterally, no crackles no wheezing or rhonchi. Cardiovascular: Regular rate and rhythm, S1, S2 normal, no murmur no gallop. Gastrointestinal: Normal bowel sounds, nondistended, nontender, No ascites, , No masses, no hepatosplenomegaly. Extremities l: No clubbing, No peripheral edema, full range of motion, no deformity, no muscle atrophy. Integumentary: No rashes, petechia, suspected lesions. Lymphatics: No axilla or cervical lymphadenopathy. Neurology; drowsy, arousable by painful stimuli, no focal neurologic deficit, does not follow any verbal command, on communicable, nonverbal - Studies Microbiology Data (last 24 hrs): 06/30/24 12:05 Clean Catch Urine [place] Count - Final >100,000 CFU/ML. 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 Patient is in minimal conscious status, severe dysphagia, failed bedside swallow test, brain CT on admission shows no acute abnormality but brain MRI has a poor quality but suggestive of possible right occipital and temporal and basal ganglia infarct acute or subacute Neurology consult note appreciated, no definite ischemic stroke, suggestive of metabolic encephalopathy No large vessel occlusion by MRA of the head and carotid artery ultrasound, transthoracic echocardiogram pending, , will start apixaban 5 mg twice daily for suspected cardioembolic stroke after repeat CT scan of the brain tomorrow to rule out any hemorrhagic conversion. I will consider the EEG to rule out nonconvulsive seizure #2 oropharyngeal dysphagia related to #1 Unable to tolerate oral diet or take oral medication dobhoff Tube insertion and feeding ordered but patient family wants to postpone it because of the need for restraint Will keep her on n.p.o. and IV fluid #3 metabolic encephalopathy related to #4 and #5 No significant improvement #4 questionable acute cystitis without sepsis by pansensitive E. coli Urine culture positive for E. coli sensitive to all antibiotics, I will continue ceftriaxone, planning 5-day course, today is day 4, no leukocytosis afebrile #5 nonoliguric DENNIS on CKD with overt proteinuria BUN/creatinine stable at 81/3.5,, no baseline creatinine to compare, urine output 600 mL over the past 24-hour, ultrasound and CT of abdomen shows bilateral small kidneys suggestive of CKD, will continue IV hydration, nephrology on board, #6 paroxysmal atrial fibrillation with rapid ventricular response Blood pressure well-controlled, heart rate at target without any hypertensive medication or AV gumaro maxine, metoprolol 5 mg as needed IV #7 elevated troponin secondary to stroke and CKD without acute coronary syndrome DVT prophylaxis enoxaparin subcu Patient has a poor prognosis given old age, extensive stroke and underlying CKD, which was discussed with her niece, GARRISON on July 02.
--- NOTE | 2024-07-03 11:44 | PN ---
Date of Progress Note: 07/03/2024 Subjective: The patient was admitted to the hospital with acute kidney injury secondary to prerenal azotemia. The patient's kidney function slightly improving. Physical Examination: Vital Signs: Blood pressure 143/94, pulse of 78, afebrile. Chest: Clear to auscultation. Heart: S1, S2. Systolic murmur. Abdomen: Soft, nontender. Extremities: No edema. Neuro: The patient is sleepy. Laboratory Data: Sodium 140, potassium 3.4, bicarb 23, BUN 85, creatinine 3, GFR of 14, calcium 9.1. Troponin 232. Chest x-ray, cardiomegaly, no significant congestion. Current Medications: The patient is on include ceftriaxone, aspirin, Lovenox, metoprolol 50 b.i.d., lorazepam, Jevity IV fluid at 75 per hour. Assessment And Plan: 1. Acute kidney injury secondary to prerenal, nonoliguric. No hyperkalemia. No significant acidosis, looked to me still on the dry side. I am going to continue IV fluid. We will continue to monitor the patient. 2. Family not decided yet regarding any renal replacement therapy. We will hold on any renal replacement therapy. Awaiting family decision and also the patient started showing improvement in the kidney function. 3. Hypertension, controlled, optimal. Continue current treatment. 4. Hypokalemia. We will supplement. 5. Hypernatremia. Continue IV hydration. Time spent examining the patient [id number] reviewing data lab and radiology placing order discussing the case with the patient / family by bedside discussing the case with the velvet steamer including hospitalist and nursing staff more than 55-minute OBDULIO Voice ID: [id number] Report ID: [id number] VARGHESE
[2024-07-03 15:47] LABS: UR MICROALBUMIN 6.1 mg/dL (< 1.9)
[2024-07-04 07:13] LABS: Anion Gap 11.6 mEq/L (5.0-15.0); Potassium 3.6 mEq/L (3.5-5.1)
--- NOTE | 2024-07-04 10:09 | RAD REPORT ---
EXAM: CT brain without contrast HISTORY: Follow-up on ischemic stroke by brain MRI COMPARISON: 07/01/2024 TECHNIQUE: Multiple contiguous axial images were obtained and a CT of the brain without contrast. Sag ittal and coronal reformats were performed. One or more of the following dose reduction techniques were used: Automated exposure control, adjust ment of the mA and/or kV according to patient size, and/or iterative reconstruction. FINDINGS: No evidence of hydrocephalus, intracranial hemorrhage, or extra-axial fluid collection. Moderate brain atrophy with moderate periventricular and deep white matter chronic microvascular isc hemic changes present. Diminished density medial left occipital lobe likely indicates subacute infarct. No hemorrhagic component. No evidence of midline shift or areas of brain edema. The calvarium is intact. The visualized paranasal sinuses and mastoid air cells are essentially clear . IMPRESSION: Diminished density medial left occipital lobe likely indicates subacute infarct. No hemorrhagic conve rsion evident.
--- NOTE | 2024-07-04 10:54 | P.PN ---
Subjective Date of Service: 07/04/24 Chief Complaint: Altered mental status Subjective: Improving No event overnight, nurse told me they did not insert feeding tube because her family requested repeat speech therapy before the tube insertion. Patient seems to be more responsive, follows simple commands like opening her eyes and sticking out tongue, sticking out tongue but no significant improvement, no seizure activity noted Review of Systems is unable to be obtained Physical Examination - Vital Signs Temperature: 97.8 F Blood Pressure: 132/62 Pulse: 50 Respirations: 16 Pulse Ox (%): 94 - Physical Exam Other Physical/Emotional Findings: - Physical Exam. General: Chronic ill- looking, cachectic, no apparent distress. HEENT: Normocephalic, atraumatic, nonicteric sclera, nonanemic conjunctive. Neck: Supple, without JVD or goiter or thyroid mass. Respiratory: Normal breathing effort, clear to auscultation bilaterally, no crackles no wheezing or rhonchi. Cardiovascular: Regular rate and rhythm, S1, S2 normal, no murmur no gallop. Gastrointestinal: Normal bowel sounds, nondistended, nontender, No ascites, , No masses, no hepatosplenomegaly. Extremities l: No clubbing, No peripheral edema, full range of motion, no deformity, no muscle atrophy. Integumentary: No rashes, petechia, suspected lesions. Lymphatics: No axilla or cervical lymphadenopathy. 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, suspected cardioembolic by brain MRI Patient is in minimal conscious status, severe dysphagia, failed bedside swallow test, brain CT on admission shows no acute abnormality but brain MRI has a poor quality but suggestive of possible right occipital and temporal and basal ganglia infarct acute or subacute Neurology consult note appreciated, no definite ischemic stroke, suggestive of metabolic encephalopathy No large vessel occlusion by MRA of the head and carotid artery ultrasound, transthoracic echocardiogram pending, I will order repeat CT scan to rule out any hemorrhagic conversion before starting anticoagulation, I also request EEG to rule out nonconvulsive seizure #2 oropharyngeal dysphagia related to #1 Unable to tolerate oral diet or take oral medication dobhoff Tube insertion and feeding ordered and patient agreed to the procedure however the nurse at the bedside patient family changed their mind again and th ey are requesting repeat to speech therapy before tube insertion. Will keep her on n.p.o. and IV fluid until feeding tube placement #3 metabolic encephalopathy related to #4 and #5 No significant improvement #4 questionable acute cystitis without sepsis by pansensitive E. coli Urine culture positive for E. coli sensitive to all antibiotics, I will continue ceftriaxone, planning 5-day course, today is day 5, no leukocytosis afebrile #5 nonoliguric DENNIS on CKD with overt proteinuria BUN/creatinine stable at 77/2.6,, no baseline creatinine to compare, serum bicarb 22, potassium 3.[address] of abdomen shows bilateral small kidneys suggestive of CKD, will continue IV hydration, nephrology on board, no urgent hemodialysis needed. #6 paroxysmal atrial fibrillation with rapid ventricular response Blood pressure well-controlled, heart rate at target without any hypertensive medication or AV gumaro maxine, metoprolol 5 mg as needed IV #7 elevated troponin secondary to stroke and CKD without acute coronary syndrome DVT prophylaxis enoxaparin subcu Patient has a poor prognosis given old age, extensive stroke and underlying CKD, which was discussed with her niece, GARRISON on July 02.
--- NOTE | 2024-07-04 15:39 | RAD REPORT ---
Modified barium swallow exam with speech pathology service HISTORY: CVA FINDINGS: Fluoroscopy Time: 3.5 minutes. 16 fluoroscopic spot series obtained Delay in the oral pharyngeal phase of swallowing. Pooling of contrast in valleculae and piriform sinus No supraglottic penetration/aspiration seen.
[2024-07-05 06:56] LABS: Anion Gap 14.7 mEq/L (5.0-15.0); Potassium 3.7 mEq/L (3.5-5.1)
[2024-07-05] MEDS: APIXABAN 2.5 MG TABLET PO SCH (07:55)
--- NOTE | 2024-07-05 11:05 | P.PN ---
Subjective Date of Service: 07/05/24 Chief Complaint: Altered mental status Subjective: New changes No event overnight, the nurse reported the patient is able to tolerate pure diet with crushed medication otherwise no significant change in patient condition, patient continued to have Alfonso catheter, nonverbal, uncommunicable, not interactive Review of Systems is unable to be obtained Physical Examination - Vital Signs Temperature: 98.2 F Blood Pressure: 107/76 Pulse: 78 Respirations: 20 Pulse Ox (%): 96 - Physical Exam Other Physical/Emotional Findings: - Physical Exam. General: Chronic ill- looking, cachectic, no apparent distress. HEENT: Normocephalic, atraumatic, nonicteric sclera, nonanemic conjunctive. Neck: Supple, without JVD or goiter or thyroid mass. Respiratory: Normal breathing effort, clear to auscultation bilaterally, no crackles no wheezing or rhonchi. Cardiovascular: Regular rate and rhythm, S1, S2 normal, no murmur no gallop. Gastrointestinal: Normal bowel sounds, nondistended, nontender, No ascites, , No masses, no hepatosplenomegaly. Extremities l: No clubbing, No peripheral edema, full range of motion, no deformity, no muscle atrophy. Integumentary: No rashes, petechia, suspected lesions. Lymphatics: No axilla or cervical lymphadenopathy. 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 by brain MRI No significant clinical improvement over the past 4 days tPA not given due to out of treatment window, repeat CT of the brain suggestive of the right subacute ischemic brain CT on admission shows no acute abnormality but brain MRI has a poor quality but suggestive of possible right occipital and temporal and basal ganglia infarct acute or subacute, spoke to neurology organization development consultant who agree with subacute ischemic stroke with severe neurologic deficits No large vessel occlusion by MRA of the head and carotid artery ultrasound, transthoracic echocardiogram result reviewed, normal left ankle ejection fraction, no structural heart disease, no intra cardiac thrombosis, I will start 2.5 mg apixaban twice daily and discontinue the aspirin. #2 oropharyngeal dysphagia related to #1 Seems to tolerate pured diet after repeat speech therapy, will continue oral feeding with crushed medication with aspiration precaution #3 possible metabolic encephalopathy related to #4 and #5 No significant improvement, Ordered EEG to rule out nonconvulsive seizure but not available at this facility #4 questionable acute cystitis without sepsis by pansensitive E. coli Urine culture positive for E. coli sensitive to all antibiotics, finished 5 days of ceftriaxone, no leukocytosis afebrile #5 nonoliguric DENNIS on CKD with overt proteinuria BUN/creatinine stable at 77/2.6,, no baseline creatinine to compare, no serious electrolyte imbalance, ultrasound and CT of abdomen shows bilateral small kidneys suggestive of CKD, will continue IV hydration, nephrology on board, no urgent hemodialysis needed. #6 paroxysmal atrial fibrillation with rapid ventricular response Blood pressure well-controlled, heart rate at target on metoprolol 50 mL twice daily #7 elevated troponin secondary to stroke and CKD without acute coronary syndrome DVT prophylaxis apixaban Patient has a poor prognosis given old age, extensive stroke and underlying CKD, which was discussed with her niece, GARRISON
[2024-07-05] MEDS ORDERED: NOREPINEPHRINE BITARTRATE/D5W 4 MG/250 ML KIT IV ONE (22:15)
[2024-07-05 23:04] VITALS: BP 104/59; TEMP 100.1
--- NOTE | 2024-07-05 23:24 | P.PN ---
Date of Service: 07/05/24 Rapid response called late evening as patient became minimally responsive. This was soon escalated to a CODE BLUE. Chest compressions were initiated. Patient received several doses of epinephrine for PEA, and she was also defibrillated for coarse V-fib. The ER team arrived at bedside and intubated the patient. There was a significant amount of liquid suctionned pre and during the intubation process. Aspiration was considered. Unfortunately, patient could not be resuscitated. Time of was 10:47 PM. I have called the patient's nephew and spoke to his . I also spoke to them when they arrived in person at the hospital. Consulted the material handling warehouse supervisor to assist with the next step.
[2024-07-06 00:04] VITALS: O2SAT 91
[2024-07-06] MEDS ORDERED: D50W 25 GM/50 ML SYRINGE IV ONE (02:24)
[2024-07-06] MEDS ORDERED: Calcium Chloride 10% INJ SYR IV ONE (02:24)
[2024-07-06] MEDS ORDERED: LIDOCAINE 100 MG/5 ML SYRINGE IV ONE (02:24)
[2024-07-06] MEDS ORDERED: EPINEPHrine 1 MG/10 ML SYR IV ONE (02:24)
--- NOTE | 2024-07-06 06:29 | P.DS ---
Admission Date: 06/30/24 Discharge Date: 07/06/24 Disposition: Discharge Condition: Reason for Admission: Altered mental status Brief History of Present Illness: Patient is an 89-year-old female who has a past medical history notable for paroxysmal atrial fibrillation not anticoagulated found to have unresponsive and down on the floor by her remote relative and brought to emergency room for evaluation and admitted on general medical floor Hospital Course: Brain CT on admission showed no acute abnormality however clinically debilitated ischemic stroke was highly suspected. Brain MRI suggested large right-sided subacute ischemic stroke, follow-up CT of the brain was also consistent with large right side ischemic stroke. She was treated with permissive hypertension, aspirin then apixaban, antibiotics for questionable acute cystitis, IV fluid. Her telemetry was noted for paroxysmal A-fib. She remained minimally conscious , nonverbal, bedridden status without any clinical significant change. Patient required indwelling Alfonso catheter for urinary retention. Dobbhoff feeding tube insertion for nutrition and medication was recommended but patient family was somewhat resistant. She was started on pured diet after repeat speech therapy recommendation per patient family request. Patient was coded the following day, aspiration was suspected during intubation. Patient did not survive in spite of resuscitation effort. Patient at 10:47 PM on July 05, 2024. Her family was notified by a Special Education Coordinator. 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 by brain MRI tPA not given due to out of treatment window, repeat CT of the brain suggestive of the right subacute ischemic stroke brain CT on admission showed no acute abnormality, brain MRI has a poor quality but suggestive of possible right occipital and temporal and basal ganglia infarct acute or subacute, neurology sales consultant insurance agreed with subacute ischemic stroke with severe neurologic deficits No large vessel occlusion by MRA of the head and carotid artery ultrasound, transthoracic echocardiogram normal left ankle ejection fraction, no structural heart disease, no intra cardiac thrombosis, started 2.5 mg apixaban twice daily and discontinued the aspirin. #2 oropharyngeal dysphagia related to #1 Seemed to tolerate pured diet after repeat speech therapy evaluation, oral feeding with crushed medication with aspiration precaution #3 possible metabolic encephalopathy related to #4 and #5 No significant improvement, Ordered EEG to rule out nonconvulsive seizure but not available at this facility #4 questionable acute cystitis without sepsis by pansensitive E. coli Urine culture positive for E. coli sensitive to all antibiotics, finished 5 days of ceftriaxone, no leukocytosis, afebrile #5 nonoliguric DENNIS on CKD with overt proteinuria BUN/creatinine stable at 77/2.6,, no baseline creatinine to compare, no serious electrolyte imbalance, ultrasound and CT of abdomen shows bilateral small kidneys suggestive of CKD, treated IV hydration, nephrology on board, no renal replacement therapy given #6 paroxysmal atrial fibrillation with rapid ventricular response Blood pressure well-controlled, heart rate at target on metoprolol 50 mL twice daily #7 elevated troponin secondary to stroke and CKD without acute coronary syndrome #8 highly suspected aspiration pneumonia associated with #2 Vital Signs/Physical Exam: Temp Pulse Resp BP Pulse Ox 100.1 F 48 L 20 104/59 L 92 07/05/24 20:00 07/05/24 20:00 07/05/24 20:00 07/05/24 20:00 07/05/24 20:00 Other Physical/Emotional Findings: - Laboratory Data at Discharge: WBC Cancelled 07/06/24 05:00 Hgb Cancelled 07/06/24 05:00 Hct Cancelled 07/06/24 05:00 Plt Count Cancelled 07/06/24 05:00 PT 13.9 SECONDS (9.4-12.5) H 06/30/24 11:18 INR 1.25 06/30/24 11:18 APTT 24.6 SECONDS (24.3-36.9) 06/30/24 11:18 Sodium Cancelled 07/06/24 05:00 Potassium Cancelled 07/06/24 05:00 BUN Cancelled 07/06/24 05:00 Creatinine Cancelled 07/06/24 05:00 Glucose Cancelled 07/06/24 05:00 Phosphorus 4.2 mg/dL (2.5-4.9) 07/02/24 05:23 Magnesium Cancelled 07/01/24 05:46 Total Bilirubin 0.8 mg/dL (0.2-1.0) 07/01/24 05:46 AST 51 U/L (15-37) H 07/01/24 05:46 ALT 24 U/L (13-56) 07/01/24 05:46 Alkaline Phosphatase 44 U/L (45-117) L 07/01/24 05:46 Home Medications: NK [No Home Meds] 07/04/24 Followup: NONE,NONE [Primary Care Provider] -
--- NOTE | 2024-07-12 13:50 | EKG ---
Test Date: 2024-07-05 Test Time: 21:05:09 Worm Sorter: VASQUEZ MEASUREMENT RESULTS: Intervals: Rate: 79 [place]: QRSD: 58 QT: 344 QTc: 394 [place]: P: [place]: QRS: -32 T: 221 INTERPRETIVE STATEMENTS: Atrial fibrillation with premature ventricular or aberrantly conducted complexes Left axis deviation Low voltage QRS Inferior infarct, age undetermined Cannot rule out Anteroseptal infarct, age undetermined Abnormal ECG Compared to ECG 06/30/2024 10:46:44 Ventricular premature complex(es) now present Low QRS voltage now present Sinus rhythm no longer present Atrial premature complex(es) no longer present ST (T wave) deviation no longer present Possible ischemia no longer present Myocardial infarct finding still present Electronically Signed On 07-12-24 13:39:30 PRODUCT DEVELOPMENT MANAGER by Luis Craig
--- NOTE | 2024-07-15 11:25 | EKG ---
Test Date: 2024-07-05 Test Time: 21:06:57 Steam Shovelman: VASQUEZ MEASUREMENT RESULTS: Intervals: Rate: 76 KS: QRSD: 68 QT: 390 QTc: 438 [place]: P: KS: QRS: -21 T: 241 INTERPRETIVE STATEMENTS: Undetermined rhythm Low voltage QRS Inferior infarct, age undetermined Cannot rule out Anterior infarct, age undetermined Abnormal ECG Compared to ECG 07/05/2024 21:05:09 Atrial fibrillation no longer present Ventricular premature complex(es) no longer present Left-axis deviation no longer present Myocardial infarct finding still present Electronically Signed On 07-15-24 11:19:01 VALVE INSERTER by Mike Delgado
== END 2024-07-06 02:25 | disposition expired | DRG 64 ==
LOC: ER 10:12 → ERHOLD 14:25 → 4TH 15:22
PROVIDERS: ADMIT Hospitalist; ATTEND Internal Medicine
PROC: 0T9B70Z Drainage of Bladder with Drainage Device, Via Natural or Artificial Opening (ICD-10-PCS; principal; 2024-06-30)
DX: I63.9 Cerebral infarction, unspecified (principal); G92.8 Other toxic encephalopathy; I21.A1 Myocardial infarction type 2; N17.0 Acute kidney failure with tubular necrosis; J69.0 Pneumonitis due to inhalation of food and vomit; N30.00 Acute cystitis without hematuria; R64 Cachexia; E87.0 Hyperosmolality and hypernatremia; I12.9 Hypertensive chronic kidney disease with stage 1 through stage 4 chronic kidney disease, or unspecified chronic kidney disease; N18.9 Chronic kidney disease, unspecified; I48.0 Paroxysmal atrial fibrillation; E87.6 Hypokalemia; K21.9 Gastro-esophageal reflux disease without esophagitis; M19.90 Unspecified osteoarthritis, unspecified site; F03.90 Unspecified dementia, unspecified severity, without behavioral disturbance, psychotic disturbance, mood disturbance, and anxiety; B96.20 Unspecified Escherichia coli [E. coli] as the cause of diseases classified elsewhere; R13.12 Dysphagia, oropharyngeal phase; R33.9 Retention of urine, unspecified; Z90.710 Acquired absence of both cervix and uterus; Z78.1 Physical restraint status; Z74.01 Bed confinement status; Z68.29 Body mass index [BMI] 29.0-29.9, adult; Z90.49 Acquired absence of other specified parts of digestive tract; Z87.891 Personal history of nicotine dependence
CPT/HCPCS: 36415; 51702; 70450; 70544; 70551; 71045; 74018; 74176; 74230; 76377; 76770; 80048; 80053; 80076; 81001; 82043; 82550; 82570; 83735; 84100; 84156; 84443; 84484; 85025; 85610; 85730; 87077; 87086; 87088; 87186; 92526; 92610; 92611; 93005; 93306; 93880; 96365; 99285; J0171; J0696; J1650; J3475; J3480; J7030